=== PATIENT | male | born 1980 | race Two or more races ===

== ENCOUNTER 2021-05-18 19:47 | Emergency (ER) | payer SELFPAY ==
[~2021-05-18] VITALS: Ht 180.3 cm; Wt 113.4 kg
--- NOTE | 2021-05-18 19:52 | NUR ---
Pt bibra and lapd c/o running around naked in the street, spitting. Pt aaox4 breathing evenly and unlabored. Pt attached to monitor and pox. MD at bedside. Pt given gown, blanket, and call light within reach
--- NOTE | 2021-05-18 22:07 | NUR ---
Patient discharged to home in stable condition. Written and verbal after care instructions given. Patient verbalizes understanding of instruction.Pt ambulatory with a steady gait
[2021-05-19] VITALS: BP 140/88
== END 2021-05-18 22:07 | disposition home or self-care (01) ==
LOC: ER 20:00
DX: F20.9 Schizophrenia, unspecified (principal)